=== PATIENT | male | born 1975 | race Caucasian/White ===

== ENCOUNTER 2019-05-09 13:45 | Emergency (ER) | payer OTHER ==
[~2019-05-09] VITALS: Ht 175.3 cm; Wt 108.9 kg
[~2019-05-09 13:45] MED LIST: GLIMEPIRIDE4 MG PO; JANUVIA25 MG; METFORMIN HCL500 MG PO
[2019-05-09] MEDS ORDERED: PANTOPRAZOLE 40 MG 10ML VIAL IV STA (14:04)
[2019-05-09] MEDS ORDERED: SODIUM CHLORIDE 0.9% 1000ML 1,000 ML IV STA (14:04)
--- NOTE | 2019-05-09 14:25 | NUR ---
DR. PINEDA IN ROOM #3 FOR PT CAS, PT STATES "I CAN MANAGE THIS ISSUE AT HOME, I JUST CAME IN BECAUSE MY DOCTOR TOLD ME TO, BUT I FEEL FINE". REQUESTING TO BE D/C HOME ON RX, AWAITING ORDERS FROM DR. PINEDA AT THIS TIME.
[2019-05-09 14:45] LABS: BILIRUBIN,URINE NEGATIVE (NEGATIVE); CLARITY,URINE CLEAR (CLEAR); COLOR,URINE YELLOW (YELLOW); KETONES,URINE NEGATIVE (NEGATIVE); LEUKOCYTE ESTERASE ,URINE NEGATIVE (NEGATIVE); NITRITE,URINE NEGATIVE (NEGATIVE); PROTEIN,URINE DIPSTICK NEGATIVE (NEGATIVE); URINE UROBILINOGEN 0.2 mg/dL (0.2 - 1)
[2019-05-09 15:04] LABS: BACTERIA,URINE RARE /HPF
[2019-05-09 15:22] VITALS: BP 101/76
== END 2019-05-09 15:20 | disposition home or self-care (01) ==
LOC: ER 13:45
DX: R10.13 Epigastric pain (principal); E11.9 Type 2 diabetes mellitus without complications; D86.9 Sarcoidosis, unspecified; K86.9 Disease of pancreas, unspecified
CPT/HCPCS: 71045; 81001; 87086; 99283; J7030

== ENCOUNTER 2022-03-27 22:34 | Emergency (ER) | payer OTHER ==
[~2022-03-27] VITALS: Ht 175.3 cm; Wt 108.9 kg
== END 2022-03-27 22:45 | disposition home or self-care (01) ==
LOC: ER 22:41
DX: R03.0 Elevated blood-pressure reading, without diagnosis of hypertension (principal); E11.9 Type 2 diabetes mellitus without complications; D86.9 Sarcoidosis, unspecified; Z87.442 Personal history of urinary calculi
CPT/HCPCS: 99282

== ENCOUNTER 2022-07-24 15:03 | Emergency (ER) | payer OTHER ==
[~2022-07-24] VITALS: Ht 175.3 cm; Wt 108.9 kg
[2022-07-24] MEDS ORDERED: SODIUM CHLORIDE 0.9% 1000ML 1,000 ML IV STA (15:41)
[2022-07-24] MEDS ORDERED: KETOROLAC TROMETHAMINE 30 MG/ML VIAL IV STA (15:41)
[2022-07-24] MEDS ORDERED: Morphine 4mg INJECTION 4 MG/ML INJ IV STA (15:41)
[2022-07-24] MEDS ORDERED: ONDANSETRON HCL INJ 2MG/ML 2ML 2 MG/ML VIAL IV STA (15:41)
[2022-07-24 15:53] LABS: BASOPHILS % 0.3 % (0.0-1.0); EOSINOPHILS # (AUTO) 0.1 (0.0-0.4); EOSINOPHILS % 0.9 % (0.0-6.0); HEMATOCRIT 38.7 % (38.2-49.6); HEMOGLOBIN 13.1 g/dL (14.0-18.0); LYMPHOCYTES # (AUTO) 0.6 (1.0-3.2); LYMPHOCYTES % 8.6 % (18.0-39.1); MEAN CORPUSCULAR HGB CONC 33.9 g/dL (31-35); MEAN CORPUSCULAR VOLUME 85.8 fL (81-99); MONOCYTES # (AUTO) 0.6 (0.2-0.8); MONOCYTES % 9.7 % (4.4-11.3); NEUTROPHILS # (AUTO) 5.1 (2.1-6.9); PLATELET COUNT 191 x10e3/uL (140-360); RED BLOOD COUNT 4.51 x10e6/uL (4.3-5.7); RED CELL DISTRIBUTION WIDTH 15.6 % (11.7-14.4)
[2022-07-24 15:58] LABS: INR 0.93; PROTHROMBIN TIME 13.3 seconds (11.9-14.5)
[2022-07-24 15:59] LABS: PARTIAL THROMBOPLASTIN TIME 28.4 seconds (23.8-35.5)
[2022-07-24 16:04] LABS: COLOR,URINE YELLOW (YELLOW)
[2022-07-24 16:05] LABS: CLARITY,URINE CLEAR (CLEAR); LEUKOCYTE ESTERASE ,URINE NEGATIVE (NEGATIVE); NITRITE,URINE NEGATIVE (NEGATIVE); PROTEIN,URINE DIPSTICK 2+ (NEGATIVE)
[2022-07-24 16:06] LABS: KETONES,URINE 1+ (NEGATIVE); URINE UROBILINOGEN 0.2 mg/dL (0.2 - 1)
[2022-07-24 16:09] LABS: ALANINE AMINOTRANSFERASE 20 IU/L (0-55); ALBUMIN 3.9 g/dL (3.5-5.0); ALBUMIN/GLOBULIN RATIO 1.1 (0.8-2.0); ALKALINE PHOSPHATASE 60 IU/L (40-150); ANION GAP 17.4 mmol/L (8-16); BLOOD UREA NITROGEN 18 mg/dL (7-26); BUN/CREATININE RATIO 12 (6-25); CALCIUM 9.5 mg/dL (8.4-10.2); CARBON DIOXIDE 23 mmol/L (22-29); CHLORIDE 107 mmol/L (98-107); CREATINE KINASE 105 IU/L (30-200); GLUCOSE 227 mg/dL (74-118); LIPASE 18 U/L (8-78); MAGNESIUM 1.6 MG/DL (1.3-2.1); POTASSIUM 4.4 mmol/L (3.5-5.1); SODIUM 143 mmol/L (136-145)
[2022-07-24 16:10] LABS: EPITHELIAL CELLS,URINE FEW /LPF; RBC,URINE 0-5 /HPF (0-5)
[2022-07-24 16:15] LABS: AMPHETAMINES SCREEN,URINE NEGATIVE (NEGATIVE); BENZODIAZEPINES SCREEN,URINE NEGATIVE (NEGATIVE); PHENCYCLIDINE SCREEN,URINE NEGATIVE (NEGATIVE)
[2022-07-24] MEDS ORDERED: HYDROCODON-ACE1 EAC9 PO (18:55)
[2022-07-24] MEDS ORDERED: CEFDINIR300 MG PO (18:55)
[2022-07-24] MEDS ORDERED: FLOMAX0.4 MG PO (18:55)
[2022-07-24] MEDS ORDERED: ONDANSETRON ODT4 MG PO (18:55)
[2022-07-24] MEDS ORDERED: KETOROLAC TROME10 MG PO (18:55)
== END 2022-07-24 19:04 | disposition home or self-care (01) ==
LOC: ER 15:37
DX: R10.31 Right lower quadrant pain (principal); N13.2 Hydronephrosis with renal and ureteral calculous obstruction; R11.2 Nausea with vomiting, unspecified
CPT/HCPCS: 36415; 74176; 80053; 80307; 81001; 82550; 82553; 83690; 83735; 84484; 85025; 85610; 85730; 99284; J1885; J2270; J2405; J7030